=== PATIENT | male | born 1995 | race Caucasian/White ===

== ENCOUNTER 2024-01-05 15:10 | Emergency (ER) | payer OTHER ==
--- NOTE | 2024-01-05 15:19 | ERPHSYRPT ---
- History of Present Illness Time Seen by Provider: 01/05/24 15:14 Source: patient, family, EMS Exam Limitations: no limitations Physician History: pt was being evaluated for his seizures in [facility] and threw up in BR and then sat down in WR there and was with altered MS. No known drug ingestions. No signs of trauma not observed to fall. He appeared to be having an absence seizure there and is now responsive in ER and answering questions. Has been adjusting meds. discussed risks/benefits with pt and family for testing and Tx Including EKG, CBC. CMP, Lactate, Keppra level, CXR, CT head and they wish to proceed so these are ordered. Timing/Duration: today Severity: moderate Character of Deficits: other (AMS/ ) Deficits: no difficulties Baseline/Normal Cognition: alert oriented x 3 Current Cognition: alert oriented x 3 Baseline Gait: walks w/o assistance Associated Symptoms: denies symptoms, other (confusion now resolved. ) Allergies/Adverse Reactions: No Known Drug Allergies Allergy (Verified 01/05/24 15:15) Home Medications: Buspirone HCl 5 mg [Buspar 5 mg] 5 mg PO CLARIFY 01/05/24 [History] levETIRAcetam [Levetiracetam] 1,500 mg PO BID 01/05/24 [History] - Review of Systems Constitutional: No Fever, No Chills Eyes: No Symptoms Ears, Nose, & Throat: No Symptoms Respiratory: No Cough, No Dyspnea Cardiac: No Chest Pain, No Edema, No Syncope Abdominal/Gastrointestinal: Vomiting, No Abdominal Pain, No Nausea, No Diarrhea Genitourinary Symptoms: No Dysuria Musculoskeletal: No Back Pain, No Neck Pain Skin: No Rash Neurological: Other (AMS in office), No Dizziness, No Focal Weakness, No Sensory Changes Psychological: No Symptoms Endocrine: No Symptoms Hematologic/Lymphatic: No Symptoms Immunological/Allergic: No Symptoms All Other Systems: Reviewed and Negative - Past Medical History Pertinent Past Medical History: Yes Neurological History: Seizures - Nursing Vital Signs Nursing Vital Signs: Initial Vital Signs Pulse Rate 42 L 01/05/24 15:11 Respiratory Rate 14 01/05/24 15:11 Blood Pressure 108/45 01/05/24 15:11 O2 Sat by Pulse Oximetry 100 01/05/24 15:11 Pain Scale Pain Intensity 0 - [place] Coma Scale Best Eye Response (Jun): (4) open spontaneously Best Verbal Response (Jun): (5) oriented Best Motor Response ([place]): (6) obeys commands [place] Total: 15 - Physical Exam General Appearance: no apparent distress, alert Eye Exam: bilateral eye: PERRL, EOMI Ears, Nose, Throat Exam: normal ENT inspection, moist mucous membranes Neck Exam: normal inspection, non-tender, supple Respiratory: normal breath sounds, lungs clear, airway intact, No respiratory distress Cardiovascular: regular rate/rhythm, No edema Gastrointestinal: soft, No tenderness, No distention Back Exam: normal inspection Extremity Exam: normal inspection, No pedal edema Peripheral Pulses: carotid (R): 2+, carotid (L): 2+, femoral (R): 2+, femoral (L): 2+, dorsalis-pedis (R): 2+, dorsalis-pedis (L): 2+ Mental Status: alert, 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: normal speech, PERRL, tongue midline Coordination/Gait: normal finger to nose, normal gait, normal cerebellar function Motor/Sensory: no motor deficit, no sensory deficit, no pronator drift DTR: bicep (R): 2+, bicep (L): 2+, tricep (R): 2+, tricep (L): 2+, knee (R): 2+, knee (L): 2+, ankle (R): 2+, ankle (L): 2+ Skin Exam: normal color, warm, dry, No rash SpO2 Interpretation: normal SpO2: 99 O2 Delivery: Room Air - Course Nursing assessment & vital signs reviewed: Yes EKG Interpreted by Me: Sinus Andrews, NORMAL AXIS, NORMAL INTERVALS, NORMAL QRS, Non-specific ST Changes - Radiology Exams Chest X-ray Interpretation: Interpreted by me, Reviewed by me, No Pneumonia, No Pneumothorax, No Infiltrates, Other (granulomas) - CT Exams Head CT Interpretation: Tele-radiologist Report, No/Intracranial Hemorrhag Ordered Tests: Active Orders 24 hr Category Date Time Status EKG-ER Only STAT Care 01/05/24 15:23 Active CHEST 2 VIEWS (PA AND LAT) Stat Exams 01/05/24 15:25 Taken HEAD WITHOUT CONTRAST [CT] Stat Exams 01/05/24 15:21 Taken ACETAMINOPHEN Stat Lab 01/05/24 15:33 Completed CBC W DIFF Stat Lab 01/05/24 15:17 Completed CMP Stat Lab 01/05/24 15:17 Completed ETHYL ALCOHOL Stat Lab 01/05/24 15:33 Completed Lactic Acid Stat Lab 01/05/24 15:30 Completed SALICYLATE Stat Lab 01/05/24 15:33 Completed UA W/RFX UR CULTURE Stat Lab 01/05/24 17:47 Completed Urine Triage Profile Stat Lab 01/05/24 17:47 Completed Lab/Rad Data: Laboratory Result Diagrams 01/05/24 15:17 01/05/24 15:17 Laboratory Results 01/05/24 01/05/24 01/05/24 Range/Units 17:47 17:47 15:33 WBC (4.23-9.07) x10^3/uL RBC (4.63-6.08) x10^6/uL Hgb (13.7-17.5) g/dL Hct (40.1-51.0) % MCV (79.0-92.2) fL MCH (25.7-32.2) pg MCHC (32.3-36.5) g/dL RDW (11.6-14.4) % Plt Count (163-337) x10^3/uL MPV (9.4-12.4) fL Gran % (34.0-67.9) % Immature Gran % (Auto) (0.001-0.429) % Nucleat RBC Rel Count (0.00-0.2) % Eos # (Auto) (0.04-0.54) x10^3/uL Immature Gran # (Auto) (0.001-0.031) x10^3u/L Absolute Lymphs (auto) (1.32-3.57) x10^3/uL Absolute Monos (auto) (0.30-0.82) x10^3/uL Absolute Nucleated RBC (0.00-0.012) x10^3u/L Lymphocytes % (21.8-53.1) % Monocytes % (5.3-12.2) % Eosinophils % (0.8-7.0) % Basophils % (0.2-1.2) % Absolute Granulocytes (1.78-5.38) x10^3/uL Basophils # (0.01-0.08) x10^3/uL Sodium (135-145) mmol/L Potassium (3.5-5.1) mmol/L Chloride (98-107) mmol/L Carbon Dioxide (22-30) mmol/L Anion Gap (5-15) MEQ/L BUN (9-20) mg/dL Creatinine (0.66-1.25) mg/dL Estimated GFR ML/MIN Glucose (74-106) mg/dL Lactic Acid (0.4-2.0) Calcium (8.4-10.2) mg/dL Total Bilirubin (0.2-1.3) mg/dL AST (17-59) U/L ALT (0-50) U/L Alkaline Phosphatase (38-126) U/L Serum Total Protein (6.3-8.2) g/dL Albumin (3.5-5.0) g/dL Urine Color Yellow (Yellow) Urine Appearance Clear (Clear) Urine pH 7.0 (4.6-8.0) Ur Specific [place] 1.010 (1.005-1.030) Urine Protein Negative (Negative) Urine Glucose (UA) Negative (Negative) mg/dL Urine Ketones Negative (Negative) Urine Blood Negative (Negative) Urine Nitrite Negative (Negative) Urine Bilirubin Negative (Negative) Urine Urobilinogen 0.2 (0.2) mg/dL Ur Leukocyte Esterase Negative (Negative) U Hyaline Cast (Auto) NONE SEEN (0-2) /LPF Urine Microscopic RBC 0-2 (0-5) /HPF Urine Microscopic WBC 0-2 (0-5) /HPF Ur Epithelial Cells None Seen (None Seen) /HPF Urine Bacteria None Seen (None Seen) /HPF Urine Culture Reflexed NO (NO) Salicylates < 1.0 L (2-20) mg/dL Urine Opiates Level NEGATIVE (NEGATIVE) Ur Methadone NEGATIVE (NEGATIVE) Acetaminophen < 10 L (10-30) ug/ml Urine Barbiturates NEGATIVE (NEGATIVE) Ur Phencyclidine (PCP) NEGATIVE (NEGATIVE) Urine Amphetamine NEGATIVE (NEGATIVE) U Benzodiazepine Level NEGATIVE (NEGATIVE) Urine Cocaine NEGATIVE (NEGATIVE) Urine Marijuana (THC) POSITIVE A (NEGATIVE) Ethyl Alcohol < 10 (0-10) mg/dL 01/05/24 01/05/24 01/05/24 Range/Units 15:30 15:17 15:17 WBC 8.1 (4.23-9.07) x10^3/uL RBC 4.07 L (4.63-6.08) x10^6/uL Hgb 12.8 L (13.7-17.5) g/dL Hct 39.3 L (40.1-51.0) % MCV 96.6 H (79.0-92.2) fL MCH 31.4 (25.7-32.2) pg MCHC 32.6 (32.3-36.5) g/dL RDW 13.1 (11.6-14.4) % Plt Count 163 (163-337) x10^3/uL MPV 10.4 (9.4-12.4) fL Gran % 66.3 (34.0-67.9) % Immature Gran % (Auto) 0.4 (0.001-0.429) % Nucleat RBC Rel Count 0.0 (0.00-0.2) % Eos # (Auto) 0.12 (0.04-0.54) x10^3/uL Immature Gran # (Auto) 0.03 (0.001-0.031) x10^3u/L Absolute Lymphs (auto) 1.87 (1.32-3.57) x10^3/uL Absolute Monos (auto) 0.64 (0.30-0.82) x10^3/uL Absolute Nucleated RBC 0.00 (0.00-0.012) x10^3u/L Lymphocytes % 23.2 (21.8-53.1) % Monocytes % 8.0 (5.3-12.2) % Eosinophils % 1.5 (0.8-7.0) % Basophils % 0.6 (0.2-1.2) % Absolute Granulocytes 5.34 (1.78-5.38) x10^3/uL Basophils # 0.05 (0.01-0.08) x10^3/uL Sodium 144 (135-145) mmol/L Potassium 4.2 (3.5-5.1) mmol/L Chloride 108 H (98-107) mmol/L Carbon Dioxide 28 (22-30) mmol/L Anion Gap 12.1 (5-15) MEQ/L BUN 15 (9-20) mg/dL Creatinine 0.92 (0.66-1.25) mg/dL Estimated GFR 114.8 ML/MIN Glucose 87 (74-106) mg/dL Lactic Acid 0.7 (0.4-2.0) Calcium 9.2 (8.4-10.2) mg/dL Total Bilirubin 0.30 (0.2-1.3) mg/dL AST 40 (17-59) U/L ALT 25 (0-50) U/L Alkaline Phosphatase 51 (38-126) U/L Serum Total Protein 6.7 (6.3-8.2) g/dL Albumin 4.2 (3.5-5.0) g/dL Urine Color (Yellow) Urine Appearance (Clear) Urine pH (4.6-8.0) Ur Specific [place] (1.005-1.030) Urine Protein (Negative) Urine Glucose (UA) (Negative) mg/dL Urine Ketones (Negative) Urine Blood (Negative) Urine Nitrite (Negative) Urine Bilirubin (Negative) Urine Urobilinogen (0.2) mg/dL Ur Leukocyte Esterase (Negative) U Hyaline Cast (Auto) (0-2) /LPF Urine Microscopic RBC (0-5) /HPF Urine Microscopic WBC (0-5) /HPF Ur Epithelial Cells (None Seen) /HPF Urine Bacteria (None Seen) /HPF Urine Culture Reflexed (NO) Salicylates (2-20) mg/dL Urine Opiates Level (NEGATIVE) Ur Methadone (NEGATIVE) Acetaminophen (10-30) ug/ml Urine Barbiturates (NEGATIVE) Ur Phencyclidine (PCP) (NEGATIVE) Urine Amphetamine (NEGATIVE) U Benzodiazepine Level (NEGATIVE) Urine Cocaine (NEGATIVE) Urine Marijuana (THC) (NEGATIVE) Ethyl Alcohol (0-10) mg/dL - Progress Progress: improved, re-examined Progress Note: 01/05/24 17:11 pt states that he monitors HR with his apple watch and 30s to 40s are normal for him and no symptoms related to that . 01/05/24 19:05 pt advised of findings and that even though it seems like he had one of his seizures and CT is normal that there still may be undetected pathology developing and that he needs further eval with his neurologist - he is alert and normal mental status now and wishes to go home with outpt f/u and rather than furhter obs in hospital , transfer , neuro eval ( offered teleneuro) or ER and has the capacity to make this choice. Counseled pt/family regarding: lab results, diagnosis, need for follow-up, rad results Medical Desision Making - Independent Historian Additional History obtained from: Family, EMS - Discussion of managment Reviewed:: Test results, Need for additional workup Agreed on:: Treatment plan, need for follow-up - Diagnostic Testing Diagnostic test were ordered, analyzed, and reviewed by me: Yes Radiological Interpretation: Interpreted by me, Reviewed by me, Teleradiologist Report - Risk of complications The pt has a mod risk of morbidity or mortality based on: Need for prescription drug management The pt has a high risk of morbidity or mortality based on: Decision regarding hospitilization or escalation of hosp level of care - Departure Departure Disposition: Home Clinical Impression: Seizure disorder, ASM episode - resolved Condition: Good Critical Care Time: No Referrals: ORLANDO MINOR MD [Primary Care Provider] - Follow up/PCP as directed Instructions: Seizures, Adult (DC), Head injury observation in adults Additional Instructions: followup with your DrDavid for your low heart rate and granulomas in lung/nodules and for seizure control. We have given a boost to the Keppra and have sent a level which will come back later and can be seen by your Dr. So see Dr. STEEL Monday and consider Neuro referral as well. Return meantime if further symptoms or concerns and be observed by a family member until seeing your DrDavid again.
[2024-01-05 15:33] VITALS: TEMP 97.6
[2024-01-05 15:39] LABS: Absolute Neutrophil Ct (ANC) 5.34 x10^3/uL (1.78-5.38); BASOPHIL % 0.6 % (0.2-1.2); Basophil (Absolute #) 0.05 x10^3/uL (0.01-0.08); Eosinophil % 1.5 % (0.8-7.0); Eosinophil (Absolute #) 0.12 x10^3/uL (0.04-0.54); Hematocrit 39.3 % (40.1-51.0); Hemoglobin 12.8 g/dL (13.7-17.5); IMMATURE GRAN # 0.03 x10^3u/L (0.001-0.031); IMMATURE GRAN % 0.4 % (0.001-0.429); Lymphocyte (Absolute #) 1.87 x10^3/uL (1.32-3.57); Lymphocytes % 23.2 % (21.8-53.1); Mean Cell Volume 96.6 fL (79.0-92.2); Mean Corpuscular Hemoglobin 31.4 pg (25.7-32.2); Mean Corpuscular Hgb Concent. 32.6 g/dL (32.3-36.5); Mean Platelet Volume 10.4 fL (9.4-12.4); Monocyte (Absolute #) 0.64 x10^3/uL (0.30-0.82); Neutrophil % 66.3 % (34.0-67.9); Platelet Count 163 x10^3/uL (163-337); Red Blood Count 4.07 x10^6/uL (4.63-6.08); Red Cell Distribution Width 13.1 % (11.6-14.4); White Blood Count 8.1 x10^3/uL (4.23-9.07)
[2024-01-05 15:46] LABS: ACETAMINOPHEN < 10 ug/ml (10-30); ETHYL ALCOHOL < 10 mg/dL (0-10); SALICYLATE < 1.0 mg/dL (2-20)
[2024-01-05 15:47] LABS: ALBUMIN 4.2 g/dL (3.5-5.0); ANION GAP 12.1 MEQ/L (5-15); BILIRUBIN,TOTAL 0.3 mg/dL (0.2-1.3); Calcium 9.2 mg/dL (8.4-10.2); Creatinine 1 0.92 mg/dL (0.66-1.25); EST GLOMERULAR FILTRATION RATE 114.8 ML/MIN; Potassium 4.2 mmol/L (3.5-5.1); Total Protein 6.7 g/dL (6.3-8.2)
[2024-01-05 18:11] LABS: Appearance Clear (Clear); Bacteria None Seen /HPF (None Seen); Bilirubin Negative (Negative); Blood Negative (Negative); Epithelial Cells None Seen /HPF (None Seen); Glucose, Urine Negative (Negative); Hyaline Casts NONE SEEN /LPF (0-2); Ketones Negative (Negative); Leukocyte Esterase Negative (Negative); Nitrite Negative (Negative); Protein,Urine Dip Negative (Negative); RBC 0-2 /HPF (0-5); Urobilinogen 0.2 mg/dL (0.2); WBC 0-2 /HPF (0-5)
[2024-01-05 18:27] LABS: Amphetamine,Urine NEGATIVE (NEGATIVE); Barbiturate,Urine NEGATIVE (NEGATIVE); Benzodiazepine,Urine NEGATIVE (NEGATIVE); Cocaine,Urine NEGATIVE (NEGATIVE); Methadone,Urine NEGATIVE (NEGATIVE); Opiate,Urine NEGATIVE (NEGATIVE); PCP,Urine NEGATIVE (NEGATIVE); THC,Urine POSITIVE (NEGATIVE)
[2024-01-05] MEDS ORDERED: Keppra 500 MG/5 ML ONE (19:28)
[2024-01-05] MEDS ORDERED: DEXTROSE IV ONE (19:28)
[2024-01-05] MEDS ORDERED: WATER IV ONE (19:28)
[2024-01-05] MEDS ORDERED: D5w 100ML Mini Bag 100 ML 100 ML IV ONE (19:29)
[2024-01-05] MEDS: Keppra 500 MG/5 ML*** 500 MG in D5w 100ML Mini Bag 100 ML 100 ML IV ONE (19:29)
[2024-01-05 20:00] VITALS: PULSE 40
[2024-01-05 20:02] VITALS: BP 97/58; RESP 11; O2SAT 99
--- NOTE | 2024-01-05 22:08 | XRAY ---
Indication: Seizure. Altered mental status. Comparison: None PA/lateral chest hyperinflated and clear. Heart and mediastinal structures within normal limits. Bony thorax intact. Impression: Nonacute hyperinflated chest.
--- NOTE | 2024-01-05 22:10 | XRAY ---
Indication: Altered mental status. Seizure. Headache. Multiple contiguous axial images obtained through the head without contrast. Comparison: None Normal appearing brain parenchyma, ventricles, and bony calvarium. Incidental 1 cm left maxillary sinus polyp/retention cyst. Mastoid air cells are clear. Impression: Normal CT head without contrast exam. Incidental left maxillary sinus polyp/retention cyst.
== END 2024-01-05 20:08 | disposition home or self-care (01) ==
LOC: ED 15:10
DX: G40.909 Epilepsy, unspecified, not intractable, without status epilepticus (principal); R41.82 Altered mental status, unspecified; Z79.899 Other long term (current) drug therapy
CPT/HCPCS: 36415; 70450; 71046; 80053; 80143; 80177; 80179; 80307; 81001; 82077; 83605; 85025; 93005; 96372; 99284; 99285; J1953

== ENCOUNTER 2024-01-23 21:30 | Emergency (ER) | payer OTHER ==
[2024-01-23 22:51] VITALS: RESP 16; TEMP 99.5
[2024-01-23 23:17] VITALS: O2SAT 92
--- NOTE | 2024-01-23 23:28 | ERPHSYRPT ---
- History of Present Illness Time Seen by Provider: 01/23/24 23:00 Source: patient Exam Limitations: no limitations Patient Subjective Stated Complaint: pt states he has had earache, headache, cough, and rash since monday to monday Triage Nursing Assessment: pt alert and oriented, answers questions approp. pt ambulates into room with steady gait noted. respirations nonlabored. skin hot and dry. rash noted to trunk, upper arms. Physician History: 28-year-old male presents to our ED with multiple complaints. Patient states last Monday he developed right ear pain. Patient felt a pressure sensation. By Monday both left and right ears felt congested. Patient taken [id number] decongestant and later developed a rash to mid extremities chest and abdominal area. Patient reported that his ear continues to bother him so he stuck a Q-tip into his ear and worsened the pain. Patient also complains of a cough. No fever no nausea no vomiting no diarrhea no neck pain no photophobia no meningeal signs. Symptoms are mild to moderate in intensity. No specific worsening or improving factors. Patient otherwise feels well. He voices no other complaints or concerns at this time. Portions of this note were created with voice recognition technology. There may be grammatical, spelling, punctuation or sound alike errors Timing/Duration: week(s) (1 week) Severity: moderate Modifying Factors: Improves With: nothing Associated Symptoms: denies symptoms Allergies/Adverse Reactions: No Known Drug Allergies Allergy (Verified 01/23/24 22:51) Home Medications: Buspirone HCl 5 mg [Buspar 5 mg] 5 mg PO BIDPRN PRN 01/05/24 [History] levETIRAcetam [Levetiracetam] 1,500 mg PO BID 01/05/24 [History] lamoTRIgine [Lamictal] 25 mg PO DAILY 01/23/24 [History] Hx Tetanus, Diphtheria Vaccination/Date Given: Yes Hx Influenza Vaccination/Date Given: No Hx Pneumococcal Vaccination/Date Given: No Immunizations Up to Date: Yes Travel Risk - International Travel Have you traveled outside of the country in past 3 weeks: No - Emerging Infectious Disease Are you exhibiting symptoms associated with any current EIDs: No Symptoms: Cough: New Onset, Fever, Headaches/Body Aches/, Rash - Review of Systems Constitutional: No Symptoms, No Fever, No Chills Eyes: No Symptoms Ears, Nose, & Throat: No Symptoms Respiratory: No Symptoms, No Cough, No Dyspnea Cardiac: No Symptoms, No Chest Pain, No Edema, No Syncope Abdominal/Gastrointestinal: No Symptoms, No Abdominal Pain, No Nausea, No Vomiting, No Diarrhea Genitourinary Symptoms: No Symptoms, No Dysuria Musculoskeletal: No Symptoms, No Back Pain, No Neck Pain Skin: No Symptoms, No Rash Neurological: No Symptoms, No Dizziness, No Focal Weakness, No Sensory Changes Psychological: No Symptoms Endocrine: No Symptoms Hematologic/Lymphatic: No Symptoms Immunological/Allergic: No Symptoms All Other Systems: Reviewed and Negative - Past Medical History Pertinent Past Medical History: Yes Neurological History: Seizures Psycho-Social History: Anxiety, Panic Disorder - Past Surgical History Past Surgical History: Yes Other Surgical History: jaw surgery - Social History Smoking Status: Former smoker Drug Use: none - Social Determinants of Health Will the patient participate in the screening: Declined to provide - Nursing Vital Signs Nursing Vital Signs: Initial Vital Signs Temperature 99.5 F 01/23/24 22:15 Pulse Rate 80 01/23/24 22:15 Respiratory Rate 16 01/23/24 22:15 Blood Pressure 127/64 01/23/24 22:15 O2 Sat by Pulse Oximetry 97 01/23/24 22:15 Pain Scale Pain Intensity 3 - Physical Exam General Appearance: no apparent distress, alert Eye Exam: PERRL/EOMI, eyes nml inspection Ears, Nose, Throat Exam: normal ENT inspection, TMs normal, pharynx normal, moist mucous membranes, other (There is trauma to the tympanic membrane. Dried blood adjacent to the tympanic membrane as well. Patient states he injured his ear while cleaning his ear with a Q-tip.) Neck Exam: normal inspection, non-tender, supple, full range of motion Respiratory Exam: normal breath sounds, lungs clear, airway intact, rhonchi (Coarse breath sounds throughout. No respiratory distress), No respiratory distress Cardiovascular Exam: regular rate/rhythm, normal heart sounds, normal peripheral pulses Gastrointestinal/Abdomen Exam: soft, normal bowel sounds, No tenderness, No mass Back Exam: normal inspection, normal range of motion, No CVA tenderness, No vertebral tenderness Extremity Exam: normal inspection, normal range of motion, pelvis stable Neurologic Exam: alert, oriented x 3, cooperative, normal mood/affect, nml cerebellar function, nml station & gait, sensation nml, No motor deficits Skin Exam: normal color, warm, dry, other (Macular rash to the upper extremities chest wall and abdomen area. No respiratory distress), No rash Lymphatic Exam: No adenopathy SpO2 Interpretation: normal SpO2: 92 O2 Delivery: Room Air - Course Nursing assessment & vital signs reviewed: Yes - Radiology Exams Chest X-ray Interpretation: Interpreted by me (No infiltrate or consolidation. Increased bronchial markings) Ordered Tests: Active Orders 24 hr Category Date Time Status CHEST 1 VIEW (PORTABLE) Stat Exams 01/23/24 23:29 Taken Medication Summary Discontinued Medications Generic Name Dose Route Start Last Admin Trade Name Freq PRN Reason Stop Dose Admin Amoxicillin/Clavulanate Potassium 875 mg 01/23/24 23:24 01/23/24 23:36 Amox Tr/Potassium Clavulanate 875 Mg Tablet PO 01/23/24 23:25 875 mg STAT ONE Administration Amoxicillin/Clavulanate Potassium Confirm 01/23/24 23:33 Amox Tr/Potassium Clavulanate 875 Mg Tablet Administered 01/23/24 23:34 Dose 875 mg .ROUTE .STK-MED ONE Ketorolac Tromethamine 30 mg 01/23/24 23:24 01/23/24 23:38 Ketorolac Tromethamine 30 Mg/Ml Inj IM 01/23/24 23:25 30 mg STAT ONE Administration Ketorolac Tromethamine Confirm 01/23/24 23:33 Ketorolac Tromethamine 30 Mg/Ml Inj Administered 01/23/24 23:34 Dose 30 mg .ROUTE .STK-MED ONE Prednisone 60 mg 01/23/24 23:23 01/23/24 23:37 Prednisone 20 Mg Tablet PO 01/23/24 23:24 60 mg STAT ONE Administration Prednisone Confirm 01/23/24 23:34 Prednisone 20 Mg Tablet Administered 01/23/24 23:35 Dose 60 mg .ROUTE .STK-MED ONE - Progress Progress: improved Progress Note: 28-year-old male presents to our ED with multiple complaints. Physical exam r eveals an otitis media, URI bronchitis skin rash. Patient received a dose of antibiotics Augmentin and Solu-Medrol. Toradol administered as well. Patient reassessed and feels much better. Patient not ready for discharge. Preliminary x-ray read shows a bronchitis. No infiltrate or consolidation. RSV COVID influenza ordered results pending. Patient requesting discharge before results available. RN Cori states she will follow-up with results and notify him of positive findings. Patient agrees to follow-up with his primary care doctor within 48 hours for reevaluation. He voices no other complaints or concerns at this time. Portions of this note were created with voice recognition technology. There may be grammatical, spelling, punctuation or sound alike errors Complexity of problem addressed is moderate acute complicated no critical care time. Complex of data reviewed and analyzed is moderate. Test ordered chest reviewed results analyzed and correlated clinically with history and physical exam. Risk of complication and or risk of morbidity/mortality of patient management is moderate. Prescription forwarded to patient's pharmacy vital stable. Time spent to discharge patient is approximately 15 minutes. Plan of care established for shared decision making. No social determinants of health present to impede follow-up. Portions of this note were created with voice recognition technology. There may be grammatical, spelling, punctuation or sound alike errors 01/24/24 00:12 Counseled pt/family regarding: lab results, diagnosis, need for follow-up, rad results - Departure Departure Disposition: Home Clinical Impression: URI (upper respiratory infection), Otitis media, Bronchitis, Allergic reaction, Skin rash Condition: Stable Critical Care Time: No Referrals: ORLANDO MINOR MD [Primary Care Provider] - Follow up/PCP as directed Additional Instructions: Discharge/Care Plan DAINA WHARTON was seen on 01/24/24 in the Emergency Room. The patient was counseled regarding Diagnosis,Lab results, Imaging studies, need for follow up and when to return to the Emergency Room. Prescriptions given: Discharge Note I have spoken with the patient and/or caregivers. I have explained the patient's condition, diagnosis and treatment plan based on the information available to me at this time. I have answered the patient's and/or caregiver's questions and addressed any concerns. The patient and/or caregivers have as good understanding of the patient's diagnosis, condition and treatment plan as can be expected at this point. The vital signs have been stable. The patient's condition is stable and appropriate for discharge from the emergency department. The patient will pursue further outpatient evaluation with the primary care physician or other designated or consulting physician as outlined in the discharge instructions. The patient and/or caregivers are agreeable to this plan of care and follow-up instructions have been explained in detail. The patient and/or caregivers have received these instruction. The patient/and or caregivers are aware that any significant change in condition or worsening of symptoms should prompt an immediate return to this or the closest emergency department or call 911. Prescriptions: Amox Tr/Potass Clav. 875 mg [Augmentin 875-125 Tablet] 875 mg PO BID 7 Days #14 tablet Prednisone 10 mg [Deltasone 10 mg] 40 mg PO DAILY 3 Days #12 tablet
[2024-01-23] MEDS ORDERED: Augmentin 875-125 Tablet ONE (23:33)
[2024-01-23] MEDS ORDERED: TORAdol 30 mg Injection ONE (23:33)
[2024-01-23] MEDS ORDERED: DELTASONE 20 MG ONE (23:34)
[2024-01-23] MEDS: Augmentin 875-125 Tablet PO ONE (23:36)
[2024-01-23] MEDS: DELTASONE 20 MG PO ONE (23:37)
[2024-01-23] MEDS: TORAdol 30 mg Injection IM ONE (23:38)
[2024-01-24 00:11] VITALS: BP 103/46; PULSE 87
[2024-01-24 00:26] LABS: INFLUENZA A NEGATIVE (NEGATIVE); INFLUENZA B NEGATIVE (NEGATIVE); RESPIRATORY SYNCTIAL VIRUS NEGATIVE (NEGATIVE); SARS-CoV-2 Xpert Express NEGATIVE (NEGATIVE)
--- NOTE | 2024-01-24 09:08 | XRAY ---
Indication: Cough. Comparison: January 05, 2024 Portable apical lordotic chest again demonstrates normal heart, lungs, and bony thorax.
== END 2024-01-24 00:17 | disposition home or self-care (01) ==
LOC: ED 21:30
DX: J06.9 Acute upper respiratory infection, unspecified (principal); H66.91 Otitis media, unspecified, right ear; J40 Bronchitis, not specified as acute or chronic; L27.0 Generalized skin eruption due to drugs and medicaments taken internally; T48.5X5A Adverse effect of other anti-common-cold drugs, initial encounter; R51.9 Headache, unspecified; R05.9 Cough, unspecified
CPT/HCPCS: 0241U; 71045; 96372; 99284; 99283; J1885; A9270-GY